=== PATIENT | male | born 1960 | race Caucasian/White ===

== ENCOUNTER 2018-01-10 01:46 | Emergency (ER) | payer OTHER | END 2018-01-10 04:07 | disposition other institution (70) | LOC: ED 01:46 | DX: Z02.89 Encounter for other administrative examinations (principal) ==

== ENCOUNTER 2018-01-10 01:46 | Emergency (ER) | payer SELFPAY ==
[~2018-01-10] VITALS: Ht 180.3 cm; Wt 72.6 kg
[2018-01-10 01:59] VITALS: Ht 180.3 cm; Wt 72.6 kg
[2018-01-10 03:23] LABS: CALCIUM 9.4 mg/dL (8.5-10.1); CARBON DIOXIDE 25.9 mmol/L (21-32); CHLORIDE SERUM 106 mmol/L (98-107); CREATININE SERUM 1.4 mg/dL (0.7-1.3); GFR1 56 mL/min; GLUCOSE SERUM 119 mg/dL (74-106); POTASSIUM SERUM 4.1 mmol/L (3.5-5.1); SODIUM SERUM 142 mmol/L (136-145)
[2018-01-10 03:24] LABS: BASOPHIL % 0.5 % (0-2); PLATELET COUNT 178 x10^3mcL (130-400); RED CELL DISTRIBUTION WIDTH 12.7 % (11.5-14.5)
[2018-01-10 03:28] LABS: ALBUMIN 4.2 g/dL (3.4-5.0); ALKALINE PHOSPHATASE 68 U/L (46-116); ALT/SGPT 34 U/L (16-63); AST/SGOT 32 U/L (15-37); BILIRUBIN TOTAL 0.56 mg/dL (0.20-1.00); TOTAL PROTEIN, SERUM 7.9 g/dL (6.4-8.2)
[2018-01-10 04:07] VITALS: BP 156/91
== END 2018-01-10 04:07 | disposition other institution (70) ==
LOC: ED 01:46
PROVIDERS: Emergency Medicine
DX: R45.1 Restlessness and agitation (principal); F12.10 Cannabis abuse, uncomplicated
CPT/HCPCS: 36415; G0480